=== PATIENT | female | born 1935 | race Caucasian/White ===

== ENCOUNTER 2016-12-30 14:33 | Inpatient (IN) | payer MEDICARE, OTHER ==
[~2016-12-30] VITALS: Ht 157.5 cm; Wt 59.7 kg
[2016-12-30] MEDS ORDERED: PLEASE ENTER ALLERGIES MC SCH ×2 (15:00)
[2016-12-30] MEDS ORDERED: FAMOTIDINE 20 MG/2 ML IVP ONE (15:00)
[2016-12-30] MEDS ORDERED: SODIUM CHLORIDE FLUSH 10ML SYR IVF ONE ×2 (15:00→18:30)
[2016-12-30] MEDS ORDERED: SODIUM CHLORIDE 0.9% 1,000ML IVBOLUS ONE (15:00)
[2016-12-30] MEDS ORDERED: ONDANSETRON 2MG/ML, 2ML IVPush ONE (15:00)
[2016-12-30] MEDS ORDERED: FAMOTIDINE 20 MG/2 ML ONE (15:05)
[2016-12-30] MEDS ORDERED: MORPHINE SULFATE 4 MG/ML, 1ML ONE (15:05)
[2016-12-30] MEDS ORDERED: ONDANSETRON 2MG/ML, 2ML ONE (15:05)
[2016-12-30 15:20] LABS: HEMOGLOBIN 16.2 g/dL (11.7-16.4)
[2016-12-30] MEDS ORDERED: OMEP20TA62 PO (15:25)
[2016-12-30] MEDS ORDERED: OMEG-76 PO (15:25)
[2016-12-30] MEDS ORDERED: METF500T4 PO (15:25)
[2016-12-30] MEDS ORDERED: ATOR10TA9 PO (15:25)
[2016-12-30] MEDS ORDERED: ENAL10TA PO (15:25)
[2016-12-30 15:28] LABS: BLOOD UREA NITROGEN 26 mg/dL (7-18)
[2016-12-30] MEDS ORDERED: morphine SULFATE 10 MG/ML, 1ML ONE (15:29)
[2016-12-30] MEDS ORDERED: morphine SULFATE 10 MG/ML, 1ML IVPush ONE (15:30)
[2016-12-30] MEDS ORDERED: HYDROmorphone 1 MG/ML, 1ML ONE (15:35)
[2016-12-30] MEDS ORDERED: HYDROmorphone 1 MG/ML, 1ML IV ONE (16:00)
[2016-12-30 16:01] LABS: DIFF TOTAL CELLS COUNTED 100 CELL DIFF
[2016-12-30 16:05] LABS: VERIFY COUNTS? YES
[2016-12-30 16:27] LABS: OCCBLD OBC PASS
[2016-12-30] MEDS ORDERED: ACETAMINOPHEN 325 MG TABLET PO PRN (17:00)
[2016-12-30] MEDS ORDERED: MORPHINE SULFATE 4 MG/ML, 1ML IVPush PRN (17:00)
[2016-12-30] MEDS ORDERED: ONDANSETRON 2MG/ML, 2ML IVP PRN (17:00)
[2016-12-30 19:05] LABS: C-REACTIVE PROTEIN, QUANT 0.64 mg/dL (0.02-0.49)
[2016-12-30 20:07] VITALS: BP 135/78
[2016-12-30] MEDS: NS + 20MEQ KCL 1,000 ML IV SCH (20:19)
[2016-12-30] MEDS: ENALAPRIL 10 MG TABLET PO SCH (20:20)
[2016-12-30] MEDS: FAMOTIDINE 20 MG/2 ML IV SCH (20:20)
[2016-12-30] MEDS: ATORVASTATIN 10 MG TABLET PO SCH (22:38)
[2016-12-30] MEDS: INSULIN REGULAR 100 UNITS/ML, 3ML VIAL SQ-INSULIN SCH (23:04)
[2016-12-31 02:17] VITALS: BP 132/72
[2016-12-31 02:37] VITALS: BP 144/73
[2016-12-31 05:08] LABS: HEMOGLOBIN 11.8 g/dL (11.7-16.4)
[2016-12-31 05:18] LABS: BLOOD UREA NITROGEN 23 mg/dL (7-18)
[2016-12-31 05:21] LABS: ASPARTATE AMINO TRANSFERASE 15 U/L (15-37)
[2016-12-31] MEDS: NS + 20MEQ KCL 1,000 ML IV SCH ×2 (05:26→17:39)
[2016-12-31 06:37] VITALS: BP 105/64
[2016-12-31] MEDS: INSULIN REGULAR 100 UNITS/ML, 3ML VIAL SQ-INSULIN SCH ×4 (07:21→22:31)
[2016-12-31] MEDS: OMEGA-3/FISH OIL CAPSULE PO SCH (08:37)
[2016-12-31] MEDS: CIPROFLOXACIN/PMX 400MG/200ML 200 ML IV SCH (08:37)
[2016-12-31] MEDS: ENALAPRIL 10 MG TABLET PO SCH ×2 (08:38→22:31)
[2016-12-31] MEDS: FAMOTIDINE 20 MG/2 ML IV SCH (08:39)
[2016-12-31] MEDS: OMEPRAZOLE 20 MG CAPSULE.DR PO SCH (08:39)
[2016-12-31] MEDS: METRONIDAZOLE PMX 500MG/100ML 100 ML IV SCH ×2 (10:05→17:44)
[2016-12-31] MEDS ORDERED: MAGNESIUM SULFATE PMX 2GM/50ML 50 ML IV ONE (12:00)
[2016-12-31 13:27] VITALS: BP 121/71
[2016-12-31 18:39] VITALS: BP 115/56
[2016-12-31] MEDS: ATORVASTATIN 10 MG TABLET PO SCH (22:31)
[2017-01-01 01:15] VITALS: BP 104/52
[2017-01-01] MEDS: METRONIDAZOLE PMX 500MG/100ML 100 ML IV SCH ×3 (01:49→18:20)
[2017-01-01] MEDS: NS + 20MEQ KCL 1,000 ML IV SCH ×3 (01:49→23:11)
[2017-01-01 05:51] LABS: HEMOGLOBIN 10.5 g/dL (11.7-16.4)
[2017-01-01 06:08] LABS: BLOOD UREA NITROGEN 9 mg/dL (7-18)
[2017-01-01 07:15] VITALS: BP 111/63
[2017-01-01] MEDS: INSULIN REGULAR 100 UNITS/ML, 3ML VIAL SQ-INSULIN SCH ×4 (08:41→21:00)
[2017-01-01] MEDS: OMEGA-3/FISH OIL CAPSULE PO SCH (08:46)
[2017-01-01] MEDS: CIPROFLOXACIN/PMX 400MG/200ML 200 ML IV SCH (08:46)
[2017-01-01] MEDS: OMEPRAZOLE 20 MG CAPSULE.DR PO SCH (08:46)
[2017-01-01] MEDS: ENALAPRIL 10 MG TABLET PO SCH ×2 (08:47→21:59)
[2017-01-01] MEDS: FAMOTIDINE 20 MG/2 ML IV SCH (08:47)
[2017-01-01] MEDS: SIMETHICONE 80 MG CHEW TAB PO SCH ×2 (13:32→22:00)
[2017-01-01 14:11] VITALS: BP 121/57
[2017-01-01 18:49] VITALS: BP 125/69
[2017-01-01] MEDS: ATORVASTATIN 10 MG TABLET PO SCH (21:59)
[2017-01-02 01:39] VITALS: BP 124/72
[2017-01-02] MEDS: METRONIDAZOLE PMX 500MG/100ML 100 ML IV SCH ×2 (02:07→10:36)
[2017-01-02 04:41] LABS: HEMOGLOBIN 10.1 g/dL (11.7-16.4)
[2017-01-02 04:48] LABS: BLOOD UREA NITROGEN 8 mg/dL (7-18)
[2017-01-02] MEDS: NS + 20MEQ KCL 1,000 ML IV SCH (06:06)
[2017-01-02] MEDS: INSULIN REGULAR 100 UNITS/ML, 3ML VIAL SQ-INSULIN SCH ×2 (07:00→12:12)
[2017-01-02 07:52] VITALS: BP 115/68
[2017-01-02] MEDS ORDERED: METR500T PO (08:40)
[2017-01-02] MEDS ORDERED: SIME80TA16 PO (08:40)
[2017-01-02] MEDS ORDERED: CIPR250T2 PO (08:40)
[2017-01-02] MEDS: CIPROFLOXACIN/PMX 400MG/200ML 200 ML IV SCH (08:51)
[2017-01-02] MEDS: OMEGA-3/FISH OIL CAPSULE PO SCH (09:00)
[2017-01-02] MEDS: ENALAPRIL 10 MG TABLET PO SCH (09:00)
[2017-01-02] MEDS: FAMOTIDINE 20 MG/2 ML IV SCH (09:01)
[2017-01-02] MEDS: OMEPRAZOLE 20 MG CAPSULE.DR PO SCH (09:01)
[2017-01-02] MEDS: SIMETHICONE 80 MG CHEW TAB PO SCH (09:53)
[2017-01-02 12:14] VITALS: BP 152/76
[2017-01-03] MEDS ORDERED: FAMOTIDINE 20 MG TABLET PO SCH (09:00)
== END 2017-01-02 13:17 | disposition home or self-care (01) | DRG 872 ==
LOC: ED 16:55 → EDIP 16:56 → ED 18:13 → 4NOR 18:38 → DCLOUNGE 01-02 12:57
PROVIDERS: ADMIT Hospitalist; ATTEND Hospitalist
PROC: 0T9B70Z Drainage of Bladder with Drainage Device, Via Natural or Artificial Opening (ICD-10-PCS; principal; 2016-12-30)
DX: A41.9 Sepsis, unspecified organism (principal); A09 Infectious gastroenteritis and colitis, unspecified; I10 Essential (primary) hypertension; K21.9 Gastro-esophageal reflux disease without esophagitis; E11.9 Type 2 diabetes mellitus without complications; Z66 Do not resuscitate; E78.5 Hyperlipidemia, unspecified; Z90.710 Acquired absence of both cervix and uterus; Z91.012 Allergy to eggs; Z91.040 Latex allergy status
CPT/HCPCS: 36415; 74020; 74176; 80048; 80053; 80061; 80076; 81003; 82040; 82272; 82962; 83036; 83605; 83690; 83735; 84100; 84145; 84439; 84443; 85025; 85651; 86140; 87040; 87324; 89055; 96361; 96374; 96375; J0744; J1170; J1815; J2405; J3480; J2270; J3475; J7030; S0028

== ENCOUNTER → 2019-10-28 | Outpatient (CLI) | payer MEDICARE, OTHER ==
[~2019-10-28] MED LIST: ATOR10TA9 PO; CIPR250T2 PO; ENAL10TA PO; METF500T17 PO; METR500T PO; OMEG-76 PO; OMEP20TA62 PO; SIME80TA16 PO
== END | disposition home or self-care (01) ==
LOC: CFH 06:38
PROVIDERS: ATTEND Internal Medicine Cardiovascular Disease
DX: Z13.6 Encounter for screening for cardiovascular disorders (principal); I08.0 Rheumatic disorders of both mitral and aortic valves; R06.02 Shortness of breath; R94.31 Abnormal electrocardiogram [ECG] [EKG]
CPT/HCPCS: 75571; 78452; 93017; 93306; 93356; A9502